=== PATIENT | male | born 1950 | race Two or more races ===

== ENCOUNTER 2021-01-19 09:25 | Outpatient (RCR) | payer MEDICARE, MEDICAID, SELFPAY | END 2021-10-27 09:05 | disposition home or self-care (01) | LOC: HO.WCC 09:25 | PROVIDERS: PCP Internal Medicine; Visit Provider Surgery | DX: K61.1 Rectal abscess (principal); I10 Essential (primary) hypertension; I73.9 Peripheral vascular disease, unspecified; F10.27 Alcohol dependence with alcohol-induced persisting dementia; F17.210 Nicotine dependence, cigarettes, uncomplicated; F60.9 Personality disorder, unspecified; F10.97 Alcohol use, unspecified with alcohol-induced persisting dementia; B36.9 Superficial mycosis, unspecified | CPT/HCPCS: 17250; 97597; 99212; 99213 ==

== ENCOUNTER 2021-02-16 09:33 | Outpatient (REF) | payer MEDICARE, MEDICAID, SELFPAY ==
--- NOTE | ~2021-02-16 | MR_ITS ---
EXAMINATION: MR PELVIS WITHOUT AND WITH CONTRAST CLINICAL INFORMATION: Worsening coccyx wound evaluate for osteomyelitis. COMPARISON: None TECHNIQUE: MRI without and with intravenous administration of 10 mL of Gadavist is performed on the pelvis. FINDINGS: No obvious wound in the region of the coccyx. No abscess. No evidence of osteomyelitis. MR/MR pelvis wo/w con IMPRESSION: Unremarkable examination. No abscess or evidence of osteomyelitis.
--- NOTE | ~2021-02-16 | XR_ITS ---
EXAMINATION: XR PRE-MRI SCREENING CLINICAL INFORMATION: Pre-MRI screening COMPARISON: None TECHNIQUE: The following radiographs are obtained for pre-MRI screening: AP and lateral skull, frontal chest x2, abdomen x2, and pelvis. FINDINGS: Radiographs of the skull show no orbital or intracranial metallic foreign body. The chest shows no pacemaker. The lungs are clear. The costophrenic sulci are well-defined. The heart is normal in size. The abdomen shows surgical clips right upper quadrant. There is no mechanical pump or other significant finding. Pelvis unremarkable. There are degenerative changes lumbosacral spine. XR/XR pre mri screening IMPRESSION: No significant foreign body on pre-MR screening exam.
[2021-02-16 10:01] LABS: MANUAL DIFF FLAG NO
[2021-02-16 10:04] LABS: Basophils Percent Auto 0.7 % (0-2); Eosinophils Absolute Auto 0.1 X10*3/uL (0.0-0.4); Hematocrit 40.7 % (42-52); Hemoglobin 13.4 g/dl (14.0-18.0); Imm Gran Abs Auto 0.02 X10*3/uL (0.00-0.03); Imm Gran Pct Auto 0.4 % (0.0-0.4); Lymphocytes Absolute Auto 1.2 X10*3/uL (1.2-4.9); Lymphocytes Percent Auto 21.2 % (20-40); Mean Corpuscular HGB Conc 32.9 g/dl (31.0-36.0); Mean Corpuscular Hemoglobin 29.1 pg (27.0-33.0); Mean Corpuscular Volume 88.5 fL (80-98); Mean Platelet Volume 8.6 fL (9.4-12.4); Monocytes Absolute Auto 0.6 X10*3/uL (0.1-1.2); Neutrophils Absolute Auto 3.6 X10*3/uL (2.0-8.3); Neutrophils Percent Auto 64.7 % (45-73); Platelet Count 232 X10*3/uL (160-400); Red Cell Distribution Width 14.4 % (11.0-16.0); White Blood Count 5.5 X10*3/uL (4.8-10.8)
[2021-02-16 10:49] LABS: Anion Gap 12 (12-20); Blood Urea Nitrogen 13 mg/dL (9-16); C Reactive Protein 0.86 mg/dL (< or = 0.50); Carbon Dioxide 34 mmol/L (22-29); Chloride 99 mmol/L (96-108); Estimated Glomerular Filt Rate > 60; Glucose Random 88 mg/dL (60-115); Potassium 5.2 mmol/L (3.3-5.1); Sodium 140 mmol/L (135-145)
[2021-02-16 10:55] LABS: Estimated Average Glucose 80 mg/dL; Hemoglobin A1c % 4.4 %
[2021-02-16 12:16] LABS: Erythrocyte Sedimentation Rate 18 MM/HR (0-15)
== END 2021-02-16 09:34 | disposition home or self-care (01) ==
LOC: HO.MRI 09:33
PROVIDERS: Visit Provider Physician Assistant
DX: L98.499 Non-pressure chronic ulcer of skin of other sites with unspecified severity (principal); M86.28 Subacute osteomyelitis, other site; K66.1 Hemoperitoneum
CPT/HCPCS: 36415; 72197; 80048; 83036; 84134; 85025; 85652; 86140; A9585

== ENCOUNTER → 2021-06-20 09:01 | Outpatient (BNVA) | payer MEDICARE, MEDICAID, SELFPAY | PROVIDERS: PCP Internal Medicine; Visit Provider Surgery | DX: S31.839A Unspecified open wound of anus, initial encounter (principal) | CPT/HCPCS: 46600; 99202 ==